=== PATIENT | female | born 1995 | race Caucasian/White ===

== ENCOUNTER 2018-11-14 13:15 | Emergency (ER) | payer OTHER ==
[2018-11-14 13:33] VITALS: BP 115/72
--- NOTE | 2018-11-14 13:59 | UC ---
Head Injury HPI - HPI Summary HPI Summary: 23 yo female presents with head injury. She tells me that yesterday she was walking in a store and not looking forward where she was going - walked into a standing pillar and hit her left [employer]. [place] a little "off" immediately following the event, but went out "dancing" later that night and felt fine. This morning went to work and felt some "fogginess" and had trouble concentrating. She has a mild headache currently, but denies dizziness, weakness , tinnitus, vision changes, or loss of balance. No nausea or vomiting. - History Of Current Complaint Chief Complaint: UCHeadInjury Stated Complaint: HEAD INJURY Time Seen by Provider: 11/14/18 13:58 Hx Obtained From: Patient Hx Last Menstrual Period: 10/24/18 Onset/Duration: Sudden Onset Severity Currently: Mild Severity Initially: Mild Pain Intensity: 2 Pain Scale Used: 0-10 Numeric - Allergies/Home Medications Allergies/Adverse Reactions: Allergies Allergy/AdvReac Type Severity Reaction Status Date / Time pet dander Allergy Congestion Uncoded 11/14/18 13:33 seasonal Allergy Congestion Uncoded 11/14/18 13:33 Home Medications: Home Medications Levonorgestrel-Ethin Estradiol [Larissia-28 Tablet] 1 tab PO DAILY 11/14/18 [ History Confirmed 11/14/18] PMH/Surg Hx/FS Hx/Imm Hx - Additional Past Medical History Additional PMH: None - Surgical History Surgical History: Yes Surgery Procedure, Year, and Place: lasix eye surgery - Family History Known Family History: Positive: None - Social History Occupation: Employed Full-time Lives: With Family Alcohol Use: Rare Substance Use Type: None Smoking Status (MU): Never Smoked Tobacco Review of Systems All Other Systems Reviewed And Are Negative: Yes Constitutional: Positive: Negative Skin: Positive: Negative ENT: Positive: Negative Respiratory: Positive: Negative Cardiovascular: Positive: Negative Gastrointestinal: Positive: Negative Motor: Positive: Negative Neurovascular: Positive: Negative Musculoskeletal: Positive: Negative Neurological: Positive: Headache Psychological: Positive: Negative Physical Exam - Summary Physical Exam Summary: GENERAL: NAD. WDWN. No pain distress. SKIN: No rashes, sores, ulcers, masses, lesions. HEENT: Head: AT/NC. Mild TTP at impact site. No ecchymosis or open wound. No raccoon eyes or reeves's sign. NECK: Supple. Nontender. No lymphadenopathy. CHEST: CTAB. No r/r/w. No accessory muscle use. Breathing comfortably and in no distress. CV: RRR. Without m/r/g. Pulses intact. Brisk cap refill. MSK: FROM c-sprine. FROM in B/L UEs and LEs with symmetric strength. NEURO: A&Ox3. 3 word recall, remote, recent memory, ability to follow 2-step directions, and attention intact. CN: II: Peripheral ferguson intact. Vision normal. III, IV, : EOMI. No nystagmus. PERRLA. V: Sensations intact and symmetric. Opens mouth and clenches teeth. VII: No facial asymmetry. Forehead wrinkles. Grins, shuts eyes, frowns, puffs cheeks. VIII: Hearing intact to finger rub. IX, X: Swallows and coughs. Uvula midline. XI: Shrugs shoulders. Turns head against resistance. XII: No tongue deviation [id number] are intact. Gait with normal base. Romberg: maintains balance, no pronator drift. Normal speech. No facial drooping. PSYCH: Age appropriate behavior. Triage Information Reviewed: Yes Vital Signs: Initial Vital Signs Temp 98.4 F 11/14/18 13:27 Pulse 46 11/14/18 13:27 Resp 18 11/14/18 13:27 BP 115/72 11/14/18 13:27 Pulse Ox 100 11/14/18 13:27 Vital Signs Reviewed: Yes Head Injury Course/Dx - Course Course Of Treatment: Discussed low impact injury and WNL exam today with pt and she elected to defer CT/imaging today. I suspect she is having these symptoms due to head injury vs concussion. Advised to refrain from activities that provoke her symptoms and f/u for a recheck in 1-2 weeks. Ibuprofen/tylenol for discomfort. If symptoms worsen to go to the ED. - Differential Dx/Diagnosis Provider Diagnosis: Head injury Discharge - Sign-Out/Discharge Documenting (check all that apply): Patient Departure All imaging exams completed and their final reports reviewed: No Studies - Discharge Plan Condition: Stable Disposition: HOME Patient Education Materials: Concussion (ED), Head Injury (ED) Referrals: No Primary Care Phys,NOPCP [Primary Care Provider] - [facility] [place] [facility] [Outside] [facility] [Outside] Additional Instructions: If you develop a fever, shortness of breath, chest pain, new or worsening symptoms - please call your PCP or go to the ED. Please schedule a follow up with a primary doctor or the [facility] in 2 weeks if your symptoms continue - Billing Disposition and Condition Condition: STABLE Disposition: Home
== END 2018-11-14 14:20 | disposition home or self-care (01) ==
LOC: UCEAST 13:15
DX: S09.90XA Unspecified injury of head, initial encounter (principal); Z91.048 Other nonmedicinal substance allergy status; Z91.09 Other allergy status, other than to drugs and biological substances; W22.09XA Striking against other stationary object, initial encounter; Y93.01 Activity, walking, marching and hiking; Y92.89 Other specified places as the place of occurrence of the external cause
CPT/HCPCS: 99211; G0463

== ENCOUNTER 2019-09-24 16:56 | Emergency (ER) | payer OTHER ==
[2019-09-24 17:12] VITALS: BP 125/71
--- NOTE | 2019-09-24 17:22 | UC ---
Complaint Female HPI - HPI Summary HPI Summary: 24-year-old female who complains of burning on urination and frequency. She states she had a yeast infection which she self treated with Monistat and that resolved. She thinks she may have some sores on her labia and states she has some burning in the external vaginal area but no abnormal vaginal discharge. Patient is sexually active with one person who does not have any history of STDs or sores. This patient states she has never had an STD. Patient's preference is not to do a pelvic exam because she states it is not an "inner pain". - History Of Current Complaint Chief Complaint: UCGU Stated Complaint: FEVER, ACHES, AND BURNING URINATION Time Seen by Provider: 09/24/19 17:19 Hx Obtained From: Patient Hx Last Menstrual Period: 2 WEEKS ?: No Onset/Duration: Gradual Onset Timing: Intermittent Severity Initially: Mild Severity Currently: Mild Pain Intensity: 3 Character: Burning Aggravating Factor(s): Urination Alleviating Factor(s): Nothing Associated Signs And Symptoms: Positive: Negative - Allergies/Home Medications Allergies/Adverse Reactions: Allergies Allergy/AdvReac Type Severity Reaction Status Date / Time pet dander Allergy Congestion Uncoded 09/24/19 17:13 seasonal Allergy Congestion Uncoded 09/24/19 17:13 PMH/Surg Hx/FS Hx/Imm Hx Previously Healthy: Yes - Surgical History Surgical History: Yes Surgery Procedure, Year, and Place: lasix eye surgery - Family History Known Family History: Positive: None - Social History Alcohol Use: Rare Substance Use Type: None Smoking Status (MU): Never Smoked Tobacco Review of Systems All Other Systems Reviewed And Are Negative: Yes Constitutional: Positive: Fever - Patient states she feels feverish at times. Genitourinary: Positive: Dysuria, Frequency, Urgency, Vaginal/Penile Burning. Negative: Vaginal/Penile Itching, Vaginal/Penile Discharge, Vaginal/Penile Pain , Vaginal/Penile Tenderness Is Patient Immunocompromised?: No Physical Exam Triage Information Reviewed: Yes Appearance: Well-Appearing, No Pain Distress, Well-Nourished Vital Signs: Initial Vital Signs Temp 99.9 F 09/24/19 17:01 Pulse 74 09/24/19 17:01 Resp 17 09/24/19 17:01 BP 125/71 09/24/19 17:01 Pulse Ox 100 09/24/19 17:01 Vital Signs Reviewed: Yes Eyes: Positive: Conjunctiva Clear Respiratory: Positive: Lungs clear, Normal breath sounds, No respiratory distress, No accessory muscle use Cardiovascular: Positive: RRR, No Murmur, Pulses Normal, Brisk Capillary Refill Abdomen Description: Positive: Nontender, No Organomegaly, Soft. Negative: CVA Tenderness (R), CVA Tenderness (L), Distended, Guarding, Hepatomegaly, McBurney' s Point Tenderness, Splenomegaly Bowel Sounds: Positive: Present Pelvic Exam: Positive: Other - The patient has no erythema or swelling of the labia. She has a minimal amount of clear vaginal drainage. At the distal portion of the labia near the vaginal opening where she has some tenderness on palpation, there is no cellulitis or swelling. It looks like this area at one point may have been torn but it's now are multiple pink in color. I do not visualize any sores or ulcerations in her genital area. Musculoskeletal Exam: Normal Neurological Exam: Normal Psychological Exam: Normal Skin Exam: Normal Complaint Female Dx - Course Course Of Treatment: The urinalysis was positive for almost everything. I'm going to treat her with Bactrim DS one tab by mouth twice a day 5 days. I'm also going to give her Diflucan 150 mg by mouth to take in 2 days from now and then repeat in 1 week from now. She is to go to the emergency room if she has any worsening symptoms such as fever, chills, vomiting and unable keep the medication down as well as back pain. Patient is agreeable to this plan of action. Prior to discharge the patient requested STD testing therefore a urine specimen was sent. - Differential Dx/Diagnosis Provider Diagnosis: UTI (urinary tract infection) Discharge ED - Sign-Out/Discharge Documenting (check all that apply): Patient Departure All imaging exams completed and their final reports reviewed: No Studies - Discharge Plan Condition: Good Disposition: HOME Prescriptions: Fluconazole 150 MG TAB* [Diflucan 150 MG TAB*] 150 mg PO UC ONCE 1 Days #1 tablet Sulfamethox/Trimethoprim DS* [Bactrim DS 800/160 TAB*] 1 tab PO BID 5 Days #10 tab Patient Education Materials: Urinary Tract Infection in Women (DC) Referrals: [facility] [Outside] No Primary Care Phys,NOPCP [Primary Care Provider] - Additional Instructions: Take the Bactrim with food. Take the Diflucan in the 2 or 3 days from now and repeat in 1 week. Definite follow-up with your primary care provider or [facility] if no improvement in 4 or 5 days. Go to the emergency room if you develop fever, chills, back pain, vomiting and unable keep the medication down. - Billing Disposition and Condition Condition: GOOD Disposition: Home
--- NOTE | 2019-09-27 15:53 | UC ---
- Progress Note Progress Note: + uti on bactrim sensitive no change ljj Course/Dx - Diagnoses Provider Diagnoses: UTI (urinary tract infection) Discharge ED - Sign-Out/Discharge Documenting (check all that apply): Post-Discharge Follow Up All imaging exams completed and their final reports reviewed: No Studies - Discharge Plan Condition: Good Disposition: HOME Prescriptions: Fluconazole 150 MG TAB* [Diflucan 150 MG TAB*] 150 mg PO UC ONCE 1 Days #1 tablet Sulfamethox/Trimethoprim DS* [Bactrim DS 800/160 TAB*] 1 tab PO BID 5 Days #10 tab Patient Education Materials: Urinary Tract Infection in Women (DC) Referrals: [facility] [Outside] No Primary Care Phys,NOPCP [Primary Care Provider] - Additional Instructions: Take the Bactrim with food. Take the Diflucan in the 2 or 3 days from now and repeat in 1 week. Definite follow-up with your primary care provider or [facility] if no improvement in 4 or 5 days. Go to the emergency room if you develop fever, chills, back pain, vomiting and unable keep the medication down. - Billing Disposition and Condition Condition: GOOD Disposition: Home
[2019-09-28 13:06] LABS: Chlamydia trachomatis NAA Negative (Negative); Neisseria gonorrhoeae (GC) NAA Negative (Negative)
== END 2019-09-24 18:15 | disposition home or self-care (01) ==
LOC: UCEAST 16:56
DX: N39.0 Urinary tract infection, site not specified (principal); Z91.09 Other allergy status, other than to drugs and biological substances
CPT/HCPCS: 81003; 84702; 87077; 87086; 87186; 87491; 87591; 99212; G0463